=== PATIENT | female | born 1980 | race Caucasian/White ===

== ENCOUNTER → 2022-02-16 11:18 | Outpatient (CLI) | payer OTHER, SELFPAY ==
--- NOTE | ~2022-02-16 | MR_ITS ---
EXAMINATION: MR foot RT wo con DATE: 02/16/2022 11:59 INDICATION: Right heel pain TECHNIQUE: Magnetic resonance imaging (MRI) of the right mid and hindfoot was performed without intra venous contrast. Sequences included sagittal T1-weighted FSE, sagittal fluid sensitive FSE STIR, linda nal PD-weighted FS FSE, coronal T1-weighted FSE, axial PD-weighted FS FSE, and axial PD-weighted FSE. COMPARISON: None FINDINGS: Medial ankle ligaments: Deep and superficial deltoid ligaments as well as the spring ligament are normal. Lateral ankle ligaments: The anterior and posterior inferior tibiofibular ligaments are normal. The anterior talofibular, calc aneofibular and posterior talofibular ligaments are normal. Tendons: Achilles tendon is normal. The peroneus longus and brevis tendons are normal. The tibialis anterior a nd extensor hallucis longus and extensor digitorum longus tendons are normal. The tibialis posterior, flexor digitorum longus and flexor hallucis longus tendons are normal. Plantar fascia: Mild thickening and increased signal at the proximal plantar aponeurosis with mild surrounding soft t issue edema. There is a small plantar calcaneal spur with additional likely reactive marrow edema and enhancement at the insertion of the plantar aponeurosis. Findings consistent with a combination of a cute on chronic plantar fasciitis. Bones/other: Bone alignment is normal. No fracture or pathologic marrow replacing process. Mild subarticular cysti c and edema-like signal changes at the anterior process of the calcaneus in the region of the footpla te of the bifurcate ligament. Joint spaces are normal. Lisfranc ligament complex is normal. The sinu s Tarsi and tarsal tunnel are unremarkable. . Fluid: Physiologic amount fluid in the joint space. No bursitis or other abnormal fluid collections. IMPRESSION: 1. Acute on chronic plantar fasciitis. 2. Nonspecific mild cystic and edema-like signal change at the anterior process of the calcaneus whic h could be related to osteoarthritis at the calcaneocuboid joint or secondary to a chronic injury of the bifurcate ligament. Reviewed, dictated and finalized at location A. [employer] IMPRESSION: 1. Acute on chronic plantar fasciitis. 2. Nonspecific mild cystic and edema-like signal change at the anterior process of the calcaneus which could be related to osteoarthritis at the calcaneocuboi d joint or secondary to a chronic injury of the bifurcate ligament.
== END ==
PROVIDERS: PCP Nurse Practitioner Family; Visit Provider Orthopaedic Surgery
DX: M79.671 Pain in right foot (principal); M72.2 Plantar fascial fibromatosis; M79.89 Other specified soft tissue disorders
CPT/HCPCS: 73718